=== PATIENT | male | born 1980 | race Caucasian/White ===

== ENCOUNTER → 2016-11-09 | Outpatient (CLI) | payer BC ==
[~2016-11-09] MED LIST: BENZONATATE200 MG PO; CEFTIN500 MG PO; FLEXERIL10 MG PO; HYDROCODONE 7.51 TAB PO; IBUPROFEN800 MG PO; LORTAB 5/500 501 TAB PO; MEDROL 4MG. DOSE4 MG PO; NAPROSYN 500MG500 MG PO; TESSALON PERLE100 M1 PO; ZOFRAN4 MG PO
--- NOTE | 2016-11-09 11:39 | RADIOLOGY REPORT PS360 ---
KUB (SINGLE VIEW) HISTORY: ACUTE LT FLANK PAIN, DYSURIA ORDERING PHYSICIAN: Tanya AUGUSTIN PATIENT AGE: 36 years COMPARISON: None FINDINGS: The bowel gas pattern is unremarkable. No obvious obstruction.. No abnormal calcifications are evident. 2 mm calcific density is present in the left upper quadrant and could represent a renal stone or calcification within the spleen. 2 mm calcific density is present in the right lower pelvic region probably related to a phlebolith. IMPRESSION: Possible left nephrolithiasis. Otherwise negative KUB
== END ==
LOC: RAD 10:56
DX: R10.9 Unspecified abdominal pain (principal); R30.0 Dysuria

== ENCOUNTER 2016-11-22 18:16 | Emergency (ER) | payer BC ==
[~2016-11-22] VITALS: Ht 180.3 cm; Wt 80.7 kg
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
[2016-11-22 19:48] VITALS: BP 145/100
--- NOTE | 2016-11-22 22:34 | RADIOLOGY REPORT PS360 ---
HAND-LT-3 VIEWS HISTORY: INJURY WITH PAIN left hand pain radial aspect of the thumb and first digit pain. Patient Age: 36 years: Male Ordering Physician: EMILY PRINCE APRN TECHNIQUE: 3 views left thumb COMPARISON : FINDINGS Osseous structures appear intact at the thumb and fingers. No fracture nor dislocation. Normal relationships at the thumb. Question some mild soft tissue swelling. Equivocal. No radiopaque foreign body. Wrist included and unremarkable. Ring remains on the fourth finger obscuring the proximal phalanx here. IMPRESSION: Right hand intact. Right thumb intact. No fracture nor dislocation evident
--- OUTSIDE RECORDS SUMMARY | 2016-12-02 23:31 | External Medical Summary Rpt | CCD ---
Demographics Preferred Language Ivorian Marital Status Unknown Islam Affiliation Unknown Race Unknown Ethnic Group Unknown Author Author , GONZALO IBRAHIM Address Unknown Phone Immunization Unable to retrieve immunization data due to connection failure with Immunization Registry. Please try again later.
--- OUTSIDE RECORDS SUMMARY | 2016-12-02 23:31 | External Medical Summary Rpt ---
Author Author PATRICE Navarro, [employer] Organization [employer] Address Unknown Phone Unavailable
--- OUTSIDE RECORDS SUMMARY | 2016-12-02 23:31 | External Medical Summary Rpt | CCD ---
Author Author GONZALO Address Unknown Phone Purpose Continuity of Care Document - through 2016
--- OUTSIDE RECORDS SUMMARY | 2016-12-02 23:31 | External Medical Summary Rpt | CCD ---
Demographics Preferred Language [place] Marital Status Unknown Shinto Affiliation Unknown Race Unknown Ethnic Group Unknown Author Author , GONZALO IBRAHIM Address Unknown Phone Immunization Unable to retrieve immunization data due to connection failure with Immunization Registry. Please try again later.
== END 2016-11-22 19:48 | disposition home or self-care (01) ==
LOC: UTC 18:16
PROC: 2W3KX1Z Immobilization of Left Finger using Splint (ICD-10-PCS; principal; 2016-11-22)
DX: S63.651A Sprain of metacarpophalangeal joint of left index finger, initial encounter (principal); Z88.0 Allergy status to penicillin; V86.55XA Driver of 3- or 4- wheeled all-terrain vehicle (ATV) injured in nontraffic accident, initial encounter

== ENCOUNTER 2016-12-28 09:34 | Emergency (ER) | payer BC ==
[~2016-12-28] VITALS: Ht 180.3 cm; Wt 81.6 kg
[~2016-12-28 09:34] MED LIST changes: +CIPRO 500MG TA500 MG PO; +HYDROCODONE/APA1 TA8 PO; +ZOFRAN ODT4 MG PO
[2016-12-28 09:49] LABS: URINE BILIRUBIN - DIPSTICK NEGATIVE (NEG); URINE BLOOD 1+ (NEG)
--- OUTSIDE RECORDS SUMMARY | 2016-12-28 10:05 | External Medical Summary Rpt ---
Author Author PATRICE Navarro, [employer]ICE [employer] Address Unknown Phone Unavailable Results Lactate [Moles/volume] in Blood Observa Value Referen Units Interpr Notes Date tion ce etation Range Lactate 0.4 - 2.0 mmol/L Normal No Dec 2 [Moles/vo informati 2016 1:55 lume] in on in PM Blood source data CBC W Auto Differential panel in Blood Observa Value Referen Units Interpr Notes Date tion ce etation Range Basophils 0 - 0.2 K/MM3 Normal No Dec 2 2016 [#/volume on in 12:50 PM ] in source Blood by data Automated count Basophils 0.1 - 2.0 % Normal No Dec 2 /100 2016 leukocyte on in 12:50 PM s in source Blood by data Automated count Eosinophi 0.0 - 0.4 K/mm3 Normal No Dec 2 ls 2016 [#/volume on in 12:50 PM ] in source Blood by data Automated count Eosinophi 0.1 - % Normal No Dec 2 ls/100 12.0 2016 leukocyte on in 12:50 PM s in source Blood by data Automated count Granulocy 1.3 - 8.0 K/mm3 High No Dec 2 jsoe 2016 [#/volume on in 12:50 PM ] in source Blood by data Automated count Granulocy 37.0 - % High No Dec 2 jose/100 80.0 2016 leukocyte on in 12:50 PM s in source Blood by data Automated count Hematocri 42.0 - % Normal No Dec 2 t [Volume 52.0 ati 2016 on in 12:50 PM Fraction] source of Blood data Hemoglobi 14.1 - g/dL Normal No Dec 2 n 18.0 2016 [Mass/vol on in 12:50 PM ume] in source Blood data Lymphocyt 0.7 - 4.5 K/mm3 Normal No Dec 2 es 2016 [#/volume on in 12:50 PM ] in source Unspecifi data ed specimen by Automated count Lymphocyt 10 - 50 % Low No Nov 2 es 2016 [#/volume on in 12:50 PM ] in source Unspecifi data ed specimen by Automated count Erythrocy 27 - 31.2 pg Normal No Nov 2 te mean 2016 corpuscul on in 12:50 PM ar source hemoglobi data n [Entitic mass] Erythrocy 31.8 - g/dl Normal No Nov 2 te mean 35.4 2016 corpuscul on in 12:50 PM ar source hemoglobi data n concentra tion [Mass/vol ume] by Automated count Erythrocy 82.2 - fl Normal No Nov 2 te mean 97.8 2016 corpuscul on in 12:50 PM ar volume source [Entitic data volume] by Automated count Monocytes 0.1 - 1.0 K/mm3 Normal No Nov 2 2016 [#/volume on in 12:50 PM ] in source Blood by data Automated count Monocytes 1.7 - 9.3 % Normal No Nov 2 2016 leukocyte on in 12:50 PM s in source Blood by data Automated count Platelet 7.4 - fl Normal No Nov 2 mean 10.4 2016 volume on in 12:50 PM [Entitic source volume] data in Blood by Automated count Platelets 142 - 424 K/mm3 Normal No Nov 2 2016 [#/volume on in 12:50 PM ] in source Blood data Erythrocy 4.6 - 6.2 M/mm3 Normal No Nov 2 jose 2016 [#/volume on in 12:50 PM ] in source Amniotic data fluid Erythrocy 11.5 - % Normal No Nov 2 te 17.5 2016 distribut on in 12:50 PM ion width source [Entitic data volume] by Automated count Leukocyte 4.8 - K/MM3 High No Nov 2 s 10.8 alert 2016 [#/volume on in 12:50 PM ] in source Blood data Differential panel, method unspecified - Observa Value Referen Units Interpr Notes Date tion ce etation Range LYMPH 8 10 - 50 % Low No Nov 2 2016 tion in 12:50 source PM data Monocytes 2 - 9 % Normal No Nov 2 /100 2016 leukocyte on in 12:50 PM s in source Blood by data Automated count Platele NORMAL No No No No Nov 2 ts informa informa informa informa 2017 [Presen tion in tion in tion in tion in 12:50 ce] in source source source source PM Blood data data data data by Light microsc opy Neutrophi 42 - 76 % High No Dec 2 ls informati 2016 [#/volume on in 12:50 PM ] in source Blood by data Automated count Cells No #CELLS No No Nov 2 Counted informati informati informati 2017 Total [#] on in on in on in 12:50 PM in Blood source source source data data data Comprehensive metabolic 2000 panel in Serum or Plasma Observa Value Referen Units Interpr Notes Date tion ce etation Range Albumin/G 1.1 - 1.8 No Low No Nov 2 lobulin informati informati 2016 [Mass on in on in 12:50 PM ratio] in source source Serum or data data Plasma Albumin 3.4 - 5.0 gm/dL Normal No Dec 2 [Mass/vol informati 2016 ume] in on in 12:50 PM Serum or source Plasma data Alkaline 46 - 116 U/L Normal No Dec 2 phosphata informati 2016 se on in 12:50 PM [Enzymati source c data activity/ volume] in Serum or Plasma Bilirubin 0.2 - 1.0 mg/dL Normal No Dec 2 .total informati 2016 [Mass/vol on in 12:50 PM ume] in source Serum or data Plasma Urea 7 - 18 mg/dL Normal No Dec 2 nitrogen informati 2016 [Mass/vol on in 12:50 PM ume] in source Serum or data Plasma Calcium 8.5 - mg/dL Normal No Dec 24 [Mass/vol 10.1 informati 2016 ume] in on in 12:50 PM Serum or source Plasma data Chloride 98 - 107 mmoL/L Normal No Dec 2 [Moles/vo informati 2017 lume] in on in 12:50 PM Serum or source Plasma data Carbon 21.0 - mmoL/L Normal No Dec 2 dioxide, 32.0 informati 2016 total on in 12:50 PM [Moles/vo source lume] in data Serum or Plasma Creatinin 0.70 - mg/dL Normal No Dec 2 e 1.30 informati 2016 [Mass/vol on in 12:50 PM ume] in source Serum or data Plasma Creatinin 50 - 200 ML/MIN Normal No Dec 2 e renal informati 2017 clearance on in 12:50 PM source predicted data by Cockcroft -Gault formula Estimated >60 ML/MIN No REFERENCE Dec 2 informati RANGE: 2017 glomerula on in >60 12:50 PM r source ML/MIN/1. filtratio data 73 SQUARE n rate METERSIf (GF this patient is -A merican, then multiply theresult by 1.210. Globulin 1.3 - 3.2 gm/dL High No Dec 2 [Mass/vol informati 2016 ume] in on in 12:50 PM Serum source data Glucose 74 - 106 mg/dL High No Dec 2 [Mass/vol informati 2017 ume] in on in 12:50 PM Serum or source Plasma data Potassium 3.5 - 5.1 mmoL/L Normal No Dec 24 inform2016 [Moles/vo on in 12:50 PM lume] in source Serum or data Plasma Sodium 136 - 145 mmoL/L Normal No Dec 2 [Moles/vo informati 2016 lume] in on in 12:50 PM Serum or source Plasma data Aspartate 15 - 37 U/L Normal No Dec 24 inform2016 aminotran on in 12:50 PM sferase source [Enzymati data c activity/ volume] in Serum or Plasma Alanine 12 - 78 U/L Normal No Dec 2 aminotran informati 2016 sferase on in 12:50 PM [Enzymati source c data activity/ volume] in Serum or Plasma Protein 6.4 - 8.2 gm/dL High No Dec 2 [Mass/vol informati 2017 ume] in on in 12:50 PM Serum or source Plasma data
--- OUTSIDE RECORDS SUMMARY | 2016-12-28 10:05 | External Medical Summary Rpt ---
Author Author PATRICE Navarro, [employer] Organization [employer] Address Unknown Phone Unavailable [...] - 8.0 K/mm3 High No Dec 2 jose 2016 [#/volume on in 12:50 [...]
--- OUTSIDE RECORDS SUMMARY | 2016-12-28 10:05 | External Medical Summary Rpt | CCD ---
Author Author , PATRICE IBRAHIM Address Unknown Phone [email or web address] Purpose Continuity of Care Document - 12-24-2016 through 2016 Problems Code Diagnosis DOS Provider Status J06.9 ACUTE UPPER RESPIRATORY INFECTION, UNSPECIFIED S01.81XA LACERATION W/O FOREIGN BODY OF OTH PART OF HEAD, INIT ENCNTR Results Labs Lab Lab Date Result Refere Interp Status Commen Order Detail nces retati t Range on Blood lactic acid measurement (moles/vol (12-24-2016 13:55) Blood = 1.1 0.4-2.0 complet lactic 017 mmol/L ed acid 13:55 measure ment (moles/ vol Differential panel, method unspecified - (12-24-2016 12:50) LYMPH 8 % 10-50 complet 017 ed 12:50 Blood = 100 complet total 017 #CELLS ed cell 12:50 count Neutrop = 88 % 42-76 complet hil 017 ed count 12:50 Platele NORMAL complet t 017 NORMAL ed estimat 12:50 L e Monocyt = 4 % 2-9 complet e % 017 ed 12:50 CBC w auto diff (12-24-2016 12:50) [place] % = 3.0 % 1.7-9.3 complet 017 ed 12:50 Automat = 0.0 0-0.2 complet ed 017 K/MM3 ed blood 12:50 basophi l count (count/ vo Blood = 23.2 4.8-10. complet leukocy 017 K/MM3 8 ed jose 12:50 count (number /volume ) Automat = 12.5 11.5-17 complet ed 017 % .5 ed erythro 12:50 cyte distrib ution width Red = 5.22 4.6-6.2 complet blood 017 M/mm3 ed cell 12:50 count Blood = 333 142-424 complet platele 017 K/mm3 ed t count 12:50 Automat = 7.9 7.4-10. complet ed 017 fl 4 ed blood 12:50 platele t mean volume ramay Absolut = 0.7 0.1-1.0 complet e 017 K/mm3 ed monocyt 12:50 e count Automat = 89.2 82.2-97 complet ed 017 fl .8 ed erythro 12:50 cyte mean corpusc ular v Automat = 33.6 31.8-35 complet ed 017 g/dl .4 ed erythro 12:50 cyte mean corpusc ular h Mean = 29.9 27-31.2 complet corpusc 017 pg ed ular 12:50 hemoglo bin (MCH) determ Lymphoc = 8.3 % 10-50 complet yte 017 ed count, 12:50 blood, automat ed Absolut = 1.9 0.7-4.5 complet e 017 K/mm3 ed lymphoc 12:50 yte count Blood = 15.6 14.1-18 complet hemoglo 017 g/dL .0 ed bin 12:50 measure ment (mass/v olum Blood = 46.5 42.0-52 complet hematoc 017 % .0 ed rit 12:50 (volume fractio n) Granulo = 88.4 37.0-80 complet cyte 017 % .0 ed percent 12:50 age Blood = 20.5 1.3-8.0 complet granulo 017 K/mm3 ed cytes 12:50 automat ed count (numb Automat = 0.1 % 0.1-12. complet ed 017 0 ed blood 12:50 eosinop hils/10 0 leukocy t Automat = 0.0 0.0-0.4 complet ed 017 K/mm3 ed blood 12:50 eosinop hil count Baso % = 0.2 % 0.1-2.0 complet 017 ed 12:50 Comprehensive metabolic panel (12-24-2016 12:50) Protein = 8.3 6.4-8.2 complet total 017 gm/dL ed ser/caio 12:50 s ALT = 50 12-78 complet (SGPT) 017 U/L ed ser/caio 12:50 s Serum = 21 15-37 complet or 017 U/L ed plasma 12:50 asparta te aminotr ansfera Serum = 137 136-145 complet sodium 017 mmoL/L ed measure 12:50 ment Serum = 3.7 3.5-5.1 complet potassi 017 mmoL/L ed um 12:50 measure ment Serum = 143 74-106 complet or 017 mg/dL ed plasma 12:50 glucose measure ment (mas Serum = 4.2 1.3-3.2 complet globuli 017 gm/dL ed n 12:50 measure ment (mass/v olume) Estimat = 94 >60 complet ed 017 ML/MIN ed glomeru 12:50 lar filtrat ion rate (GF Comment: REFERENCE RANGE: >60 ML/MIN/1.73 SQUARE METERS Comment: If this patient is -Swazi, then multiply the Comment: result by 1.210. Estimat = 129 50-200 complet ion of 017 ML/MIN ed creatin 12:50 ine renal clearan ce Serum = 0.9 0.70-1. complet or 017 mg/dL 30 ed plasma 12:50 creatin ine measure ment ( Carbon = 25 21.0-32 complet dioxide 017 mmoL/L .0 ed 12:50 measure ment Serum = 102 98-107 complet or 017 mmoL/L ed plasma 12:50 chlorid e measure ment (mo Serum = 9.3 8.5-10. complet or 017 mg/dL 1 ed plasma 12:50 calcium measure ment (mas Serum = 10 7-18 complet or 017 mg/dL ed plasma 12:50 urea nitroge n measure men Serum = 0.6 0.2-1.0 complet or 017 mg/dL ed plasma 12:50 total bilirub in measure m Serum = 101 46-116 complet or 017 U/L ed plasma 12:50 alkalin e phospha tase ramya Serum = 4.1 3.4-5.0 complet or 017 gm/dL ed plasma 12:50 albumin measure ment (mas Serum = 1.0 1.1-1.8 complet or 017 ed plasma 12:50 albumin /globul in mass ra Differential panel, method unspecified - (12-24-2016 12:50) LYMPH 8 % 10% - Low complet 017 50% ed 12:50 Platele NORMAL complet ts 017 ed [Presen 12:50 ce] in Blood by Light microsc opy Urinalysis with microscopy (12-24-2016 11:15) Bacteri 3+ 3+ L O complet a 017 ed detecti 11:15 on in urine sedimen t by Urine = OCC O complet leukocy 017 wbc/hpf ed jose 11:15 count (number /volume ) Urine 0.2 0.2 NEG complet urobili 017 L ed nogen 11:15 E.U./dL detecti on by test str [place] 10-20 OCC complet s 017 10-20 L ed epithel 11:15 #/hpf ial cells detecti on in u Urine > = 1.005-1 complet specifi 017 1.030 .030 ed c 11:15 gravity measure ment Erythro 10-20 0 complet cytes 017 10-20 L ed detecti 11:15 on in rbc/hpf urine sedimen t Urine 1 + NEG complet protein 017 mg/dL ed 11:15 measure ment by automat ed t Urine = 5.5 5.0-8.5 complet pH 017 ed 11:15 Urine NEGATIV NEG complet nitrite 017 E ed 11:15 NEGATIV detecti E L on by test strip Mucus 3+ 3+ L NONE complet detecti 017 ed on in 11:15 urine sedimen t by lig Mucus NEGATIV NEG complet detecti 017 E ed on in 11:15 NEGATIV urine E L sedimen t by lig Urine NEGATIV NEG complet ketones 017 E ed 11:15 NEGATIV detecti E L on by mg/dL automat ed jose Glucose = NEG complet ur 017 NEGATIV ed test 11:15 E strip Urine DK YELLOW complet color 017 YELLOW ed 11:15 DK YELLOW L Urine 3+ 3+ L NEG complet blood 017 ed detecti 11:15 on Urine NEGATIV NEG complet total 017 E ed bilirub 11:15 NEGATIV in E L detecti on by test Urine SL CLEAR complet appeara 017 CLOUDY ed nce 11:15 SL determi CLOUDY nation L
--- OUTSIDE RECORDS SUMMARY | 2016-12-28 10:05 | External Medical Summary Rpt | CCD ---
Demographics Preferred Language Sinhala Marital Status Unknown Taoist Affiliation Unknown Race Unknown Ethnic Group Unknown Author Author , GONZALO IBRAHIM Address Unknown Phone Immunization No patient found.
--- OUTSIDE RECORDS SUMMARY | 2016-12-28 10:05 | External Medical Summary Rpt | CCD ---
Demographics Preferred Language Korean Marital Status Unknown Gnosticism Affiliation Unknown Race Unknown Ethnic Group Unknown Author Author , GONZALO IBRAHIM Address Unknown Phone Immunization No patient found.
--- OUTSIDE RECORDS SUMMARY | 2016-12-28 10:05 | External Medical Summary Rpt | CCD ---
Author Author , PATRICE IBRAHIM Address Unknown Phone [email or web address] Purpose Continuity of Care Document - 12-24-2016 [...] 12:50 CBC w auto diff (12-24-2016 12:50) [place] % = 3.0 % 1.7-9.3 complet 017 [...] ed blood 12:50 platele t mean volume ramya Absolut = 0.7 0.1-1.0 complet e 017 [...] SQUARE METERS Comment: If this patient is -[place], then multiply the Comment: result by 1.210. [...]
--- NOTE | 2016-12-28 10:06 | Emergency Room Report ---
History of Present Illness Time Seen by [id number] Presenting Problem in Triage Pt arrived:Walked Presenting Problem:PT ADVISES HE WAS SEEN ON WEDNESDAY FOR A KIDNEY STONE. REPORTS INCREASED PAIN TODAY. NO RELIEF FROM PRESCRIPTION PAIN MEDS. Onset of symptoms date/time:/ or onset unknown for:MEDICAL HX UNKNOWN Treatment Prior to Arrival: [employer] Provided by: Sepsis Risk Assessment: Temp: 98.4 B/P: 157/100 MAP: 119 Pulse: 52 Resp: 16 Recent fever? N Clinical Suspician of Infection? N Mental Status: 1 - Regular (Normal Baseline) Sepsis Risk:Low Sepsis Risk Have you (or family members/close friends) recently traveled outside the [place]? N If Yes, where/when: Have you had exposure to infectious disease within the past month? N TB? Other? Specify: Pt with renal calculus diagnosed on CT last week. Taking Lortab, felt well over the weekend, went to work this AM and acutely pain returned, colicky in nature, now migrating to [facility]. No fever. Has had recent URI, still on steroids, cough improving. No fever. Taking Ciprofloxacin due to elevated WBC but likely lab results from URI plus steroids tx. Doesn't have f/u with urology yet. Has nausea , no vomiting; able to urinate. ALLERGIES Coded Allergies: Penicillins (09/15/15) Home Medications Active Scripts Ondansetron (Zofran 4MG Odt) 4 MG PO Q6HP PRN NAUSEA AND VOMITING #12 ODT Prov: 12/24/16 Ciprofloxacin HCl (Cipro 500MG TAB) 500 MG PO BID #14 TAB Prov: 12/24/16 HYDROCODONE/ACETAMINOPHEN (LORTAB 5-325 (generic)) 1 TAB PO Q6HP PRN PAIN #20 TAB Prov: 12/24/16 History Medical History General CAD? No Angina: No FL: No Hypertension? No Hyperlipidemia? No CHF? No DVT? No PE? No COPD? No Asthma? No Anemia? No GERD? No Gastric ulcers? No GI Bleed? No Hernia? No Thyroid Problems? No Hypothyroidism? No CVA? No Seizures? No Diabetes? No Renal Insuffiency? No End Stage Renal Disease? No UTI? No Stones? No BPH? No GB Disease: No Nephritic Syndrome? No Asplenia? No Hepatitis? No Sickle Cell Disease? No Arthritis? No Migraines? No Cataracts? No Glaucoma? No MRSA? No HIV? No TB? No Anxiety? No Depression? No Cancer? No More? Yes Additional hx: 2 SPONTANEOUS PNEUMOTHORAX Immunization Hx DT/Tetanus Unknown Surgical Hx Previous Surgery?Y CHEST TUBES X2 R LUNG R/T PNEUMO Social History Smoking Hx Smoker: Never Smoker Tobacco: No Packs/day N/A Alcohol Alcohol: No Review of Systems All Other Systems Reviewed and Negative Gastrointestinal see HPI Genitourinary see HPI. Physical Exam Vital Signs Vital Signs Date Time Temp Pulse Resp B/P Pulse O2 O2 Flow FiO2 Ox Delivery Rate 12/28 1100 65 16 133/65 98 12/28 1008 16 12/28 0941 98.4 52 16 157/100 98 12/28 0936 98.4 52 16 157/100 98 General Appearance normal appearance, WD/WN, mild distress (appears uncomfortable) Eye Exam - bilateral eye normal exam, bilateral eye PERRL, bilateral eye EOMI Neck normal inspection, non-tender, supple, full range of motion Respiratory Status Yes: trachea midline, chest symmetrical, non tender chest. No: respiratory distress, tender on palpation, use of accessory muscles, pain on inspiration, pain on expiration, productive cough, non productive cough. Lung Sounds bilateral: normal breath sounds, lungs clear. Cardiovascular normal exam, regular rate/rhythm, no peripheral edema, no gallop, no JVD, no murmur, no rub, normal peripheral pulses Gastrointestinal normal bowel sounds, normal exam, no organomegaly, no pulsatile mass, no guarding, no rebound, tenderness (very mild,upper part of RLQ) Back normal inspection, no CVA tenderness, no vertebral tenderness, bowel/ bladder continent, gait normal Strength 5 Upper Ext (L), 5 Upper Ext (R), 5 Lower Ext (L), 5 Lower Ext (R) Neurologic alert, normal exam, no motor/sensory deficits, oriented x 3 Glascow Coma Scale Glascow Coma Scale Response Value EYE response: 4 Spontaneously 4 MOTOR response: 6 OBEYS 6 VERBAL response: 5 Oriented & Converses 5 Total 15 Skin intact, normal color, warm/dry Medical Decision Making LABS/Meds/Orders Pt receiving controlled substance in ED? No Results/Orders Laboratory Tests 12/28/16944: Peripheral Blood Smear Pending 12/28/16944: Sodium 138, Potassium 3.8, Chloride 102, Carbon Dioxide 31, BUN 16, Creatinine 1.4 H, Estimated Creat Clear 83, Estimated GFR (MDRD) 57, Glucose 126 H, Calcium 8.6, Total Bilirubin 0.4, AST 23, ALT 54, Alkaline Phosphatase 90, Total Protein 7.5, Albumin 3.9, Globulin 3.6 H, Albumin/Globulin Ratio 1.1, WBC 25.0 *H, RBC 5.17, Hgb 15.5, Hct 46.8, MCV 90.6, RDW 12.3, Plt Count 397, MPV 7.3 L, Gran % 84.0 H, Gran # 21.0 H, Total Counted 100, Lymphocytes % 7.4 L, Monocytes % 7.9, Eosinophils % 0.2, Basophils % 0.5, Neutrophils 81 H, Lymphocytes (Manual) 13, Lymphocytes # 1.9, Monocytes (Manual) 6, Monocytes # 2.0 H, Eosinophils # 0.1, Basophils # 0.1, Platelet Estimate NORMAL, PUBS MCHC 33.2, MCH 30.1, Urine Color YELLOW, Urine Appearance CLEAR, Urine pH 5.5, Ur Specific [place] >= 1.030, Urine Protein NEGATIVE, Urine Ketones NEGATIVE, Urine Blood 1+ H, Urine Nitrate NEGATIVE, Urine Bilirubin NEGATIVE, Urine Urobilinogen 0.2, Ur Leukocyte Esterase NEGATIVE, Urine RBC 3-5, Urine WBC NONE, Ur Squamous Epith Cells OCC, Urine Bacteria OCC, Urine Glucose NEGATIVE Current Medication Orders Sig/Romeo Start time Last Medication Dose Route Stop Time Status Admin Ketorolac 30 MG ONCE ONE 12/28 1015 DC 12/28 Tromethamine IV 12/28 1016 1008 Ondansetron HCl 4 MG ONCE ONE 12/28 1015 DC 12/28 IV 12/28 1016 1008 Ketorolac 0 .STK-MED ONE 12/28 1007 DC Tromethamine .ROUTE Ondansetron HCl 0 .STK-MED ONE 12/28 1007 DC .ROUTE Sodium Chloride 10 ML PRN PRN 12/28 944 AC IV 12/30 943 Orders Procedure Date/time Status KUB (SINGLE VIEW) 12/28 1002 Active DIFFERENTIAL-WBC 12/28 944 Complete IV SALINE LOCK 12/29 943 Active URINALYSIS/COMPLETE 12/29 943 Complete CBC WITH AUTO DIFF 12/29 943 Complete CHEM 12 PROFILE 12/29 943 Complete XRAY/CT/US XRAY/CT/US XRAY KUB XR interpretation by reviewed by me, discussed w/radiologist Xray Results normal/NAD, increased stool, phlebolith seen previously per Dr. Wilkins. No calculi seen. Progress ED Progress Notes 1 Date 12/28/16 Time 1021 Comment WBC still elevated but urine clear, afebrile, still on steroids, which is most likely explanation for this laboratory abnormality. ED Progress Notes 2 Date 12/28/16 Time 1117 Comment resting comfortably now. Departure Departure Time of Disposition 1117 Disposition DC Home or Self Care(routine) Clinical Impression Primary Impression: Renal colic on right side Condition STABLE Referrals Spencer BAZAN,Jay Painter MD,Nick (Family) Patient Instructions Kidney Stones -- Adult Additional Instructions Filter all urine; clear liquids overnight; continue Lortab sparingly and Zofran as needed; Rx Toradol, do not take this medication with Advil or Naproxen. Follow up with Dr. Palmer in specialty clinic or with Dr. Ross. Our staff will give you detailed information about where and when as making a phone call on your behalf to get this scheduled. Discharge Counseling Counseled pt/family regarding diagnosis, test results, medications/RX, home care, follow up needs Prescriptions Current Visit Scripts KETOROLAC TROMETHAMINE (TORADOL 10MG) 10 MG PO TIDP PRN renal colic #3 TAB ED Critical Care Critical Care No at 1122
[2016-12-28 10:07] LABS: HEMOGLOBIN 15.5 g/dL (14.1-18.0); LYMPH # 1.9 K/mm3 (0.7-4.5); LYMPH % 7.4 % (10-50)
[2016-12-28 10:19] LABS: URINE SQUAMOUS CELLS OCC #/hpf (OCC)
[2016-12-28 10:38] LABS: NEUTROPHILS 81 % (42-76)
[2016-12-28] MEDS ORDERED: TORADOL10 MG PO (11:26)
--- NOTE | 2016-12-28 11:31 | RADIOLOGY REPORT PS360 ---
KUB (SINGLE VIEW) HISTORY: recent dx calculus, here for recheck; CT done last wk Patient Age: 36 years: Male Ordering Physician: Mary Lr MD TECHNIQUE: Supine KUB COMPARISON :Recent CT abdomen pelvis - . Also the KUB from November 09, 2016 helpful for comparison. FINDINGS . . The recent CT showed a small 3 mm stone right pelvis just at the right UVJ , low in the pelvis. This would be projected above the right superior ramus. COMPARISON of today's study to the October2016 again shows a similar pattern of a few small phleboliths right pelvic basin with stable pattern.. With no definitive new calcifications. . Thus I cannot identify the small 3 mm calculus seen on the recent CT. It may be obscured or too faint to appreciate; or may have passed. Otherwise at the abdomen there prominent stool seen throughout the right and transverse colon suggesting mild/moderate constipation in these region. Minimal stool at the left colon and rectosigmoid.. . . No organomegaly no additional findings ] IMPRESSION: 1. Recent CT revealed tiny 3 mm ureteral calculus at distal-most right ureter near UVJ. This was quite low in the pelvis. Today's KUB shows no significant change since study 11/09/2016 KUB. with stable pattern of tiny phleboliths right lower pelvic basin. The small recent distal ureteral stone is not apparent. Note comments in text 2. Prominent stool at right and transverse colon suggesting mild/moderate constipation in these regions.
[2016-12-28 11:37] VITALS: BP 133/65
== END 2016-12-28 11:38 | disposition home or self-care (01) ==
LOC: ER 09:34
PROVIDERS: Emergency Medicine
DX: M54.5 Low back pain (principal); N20.0 Calculus of kidney; Z88.0 Allergy status to penicillin
CPT/HCPCS: J2405